=== PATIENT | female | born 1990 | race Caucasian/White ===

== ENCOUNTER 2021-09-14 15:58 | Outpatient (CLI) | payer BC, SELFPAY ==
--- NOTE | ~2021-09-14 | US_ITS ---
EXAMINATION: US OB follow up DATE: 09/14/2021 16:44 INDICATION: Abnormal glucose complicating during third trimester TECHNIQUE: Real-time ultrasound of the pelvis was performed. The interpreting radiologist was not pre sent for the study. COMPARISON: None. FINDINGS: There is a single living fetus in vertex presentation. The placenta is anterior. heart rate is 136 beats per minute (bpm). The amniotic fluid index is 13.0 cm, which is normal (5th%-95%: 8.8-23. 8 cm at 31 weeks estimated gestational age). The following biometric data were obtained: BPD: 8.8 cm -> 35 weeks 5 days Head circumference: 32.3 cm -> 36 weeks 4 days Abdominal circumference: 33.2 cm -> 37 weeks 1 days Femur length: 6.1 cm -> 31 weeks 5 days Femur length to biparietal diameter and abdominal circumference ratios are both greater than [address] deviations below the mean. Head circumference to abdominal circumference ratio: 0.97 (normal range 0.93-1.10). Estimated weight: 2711 g (+/-) 407 g or 6 lbs. 0 oz. (+/-) 14 oz. IMPRESSION: 1. Single living fetus in vertex presentation with heart rate of 136 bpm. 2. Gestational age by ultrasound of 35 weeks 2 day(s) +/- 2 week(s) 3 day(s) with ultrasound estimate d date of delivery (DEE) of 10/17/2021. Estimated weight is >97th percentile by Hadlock criteria when 11/11/2021 is used as the DEE. Please correlate with clinical information or earlier ultrasounds for most accurate DEE. 3. Discordant biometric data with femur length to both biparietal diameter ratio and femur length to abdominal circumference ratio both greater than 2 standard deviations below the mean suggesting rhizo saurav. Reviewed, dictated and finalized at location A. R READERS SUPERVISOR IMPRESSION: 1. Single living fetus in vertex presentation with heart rate of 136 bpm. 2. Gestational age by ultrasound of 35 weeks 2 day(s) +/- 2 week(s) 3 day(s) wi th ultrasound estimated date of delivery (DEE) of 10/17/2021. Estimated we ight is >97th percentile by Hadlock criteria when 11/11/2021 is used as the DEE. Please correlate with clinical information or earlier ultrasounds for most accu rate DEE. 3. Discordant biometric data with femur length to both biparietal diameter rati o and femur length to abdominal circumference ratio both greater than 2 standar d deviations below the mean suggesting rhizomelia.
== END 2021-09-14 15:59 | disposition home or self-care (01) ==
LOC: ANHIMG 16:04
PROVIDERS: Visit Provider Obstetrics & Gynecology
DX: O99.810 Abnormal glucose complicating pregnancy (principal); Z3A.35 35 weeks gestation of pregnancy
CPT/HCPCS: 76816

== ENCOUNTER 2021-09-29 10:49 | Observation (INO) | payer BC, SELFPAY ==
[2021-09-29 11:16] VITALS: BP 120/77; PULSE 103; TEMP 37.3
[2021-09-29 11:31] VITALS: BP 121/78; PULSE 87
[2021-09-29 11:40] VITALS: BMI 41.8
--- NOTE | 2021-09-29 11:41 | OBADM ---
This patient, Mary Macedo, admitted to the OB room OB Post 116 for observation. Patient/family oriented to hospital policies and general routines including ID bracelet, bed and alarms, visiting hours, pain management, procedures, bathroom and other care routines, personal items, smoking policy, room service/diet, and visiting hours. Patient/Family are encouraged to report perceived risks to care and to ask questions if they do not understand what they are told or what they should do.
[2021-09-29 11:46] VITALS: BP 119/79; PULSE 88
[2021-09-29 12:04] LABS: Glucose Point of Care 78 mg/dl (65-105)
[2021-09-29 12:55] LABS: Add Urine Microscopic? YES; Appearance Urine Cloudy (Clear); Bacteria Urine Trace /hpf; Bilirubin Urine Negative (Negative); Blood Urine Negative (Negative); Color Urine Yellow (Yellow); Glucose Urine UA Negative (Negative); Ketones Urine 1+ mg/dL (Negative); Leukocyte Esterase Ur 2+ LEU/UL (Negative); Mucus Urine Rare /lpf; Nitrate Urine Negative (Negative); Protein Urine Negative (Negative); RBC Urine 0-2 /hpf (0-2); Specific Grav Ur 1.012 (1.001-1.035); Squamous Epithelial Cell Urine Many /hpf (Few); Urobilinogen Urine Negative mg/dL (<2.0)
--- NOTE | 2021-10-04 12:28 | PM.OBTRLD ---
OB - Triage/Final Diagnosis Visit Information Comments/Additional reasons for admission: I have assessed the risk for this patient, Mary Macedo, and determined that she would benefit from observation care. Evaluation Laboratory results: Laboratory Tests 09/29/21 09/29/21 11:52 11:56 POC Capillary Glucose 78 Urine Color Yellow Urine Appearance Cloudy H Urine pH 6.0 Ur Specific Byron 1.012 Urine Protein Negative Urine Glucose (UA) Negative Urine Ketones 1+ H Ur Blood (Man) Negative Urine Nitrate Negative Urine Bilirubin Negative Urine Urobilinogen Negative Leukocyte Esterase Rfl 2+ H Urine RBC 0-2 Urine WBC 4-6 H Ur Squamous Epith Cells Many H Urine Bacteria Trace Urine Mucus Rare Final Diagnosis (1) uterine contractions: Code(s): O47.00 - False labor before 37 completed weeks of gestation, unspecified trimester Status: Acute
== END 2021-09-29 13:20 | disposition home or self-care (01) ==
PROVIDERS: Admitting Provider Obstetrics & Gynecology; Visit Provider Obstetrics & Gynecology
DX: O47.03 False labor before 37 completed weeks of gestation, third trimester (principal); Z3A.34 34 weeks gestation of pregnancy
CPT/HCPCS: 81001; 82948; G0378; G0379

== ENCOUNTER 2021-10-16 09:19 | Outpatient (RCR) | payer BC, SELFPAY ==
[2021-10-16 09:56] VITALS: BP 112/76; PULSE 74
== END 2021-11-15 08:19 | disposition home or self-care (01) ==
LOC: ANHOBOP 09:19
PROVIDERS: Visit Provider Obstetrics & Gynecology
DX: O24.419 Gestational diabetes mellitus in pregnancy, unspecified control (principal); Z3A.36 36 weeks gestation of pregnancy
CPT/HCPCS: 59025; J2274

== ENCOUNTER 2021-10-17 14:11 | Observation (INO) | payer BC, SELFPAY ==
[2021-10-17 14:33] VITALS: BP 127/75; PULSE 101
[2021-10-17 14:47] VITALS: TEMP 36.6
[2021-10-17 16:19] VITALS: BMI 42.2
--- NOTE | 2021-10-17 19:18 | PM.OBTRLD ---
OB - Triage/Final Diagnosis Visit Information Comments/Additional reasons for admission: I have assessed the risk for this patient, Mary Macedo, and determined that she would benefit from observation care. Final Diagnosis (1) uterine contractions: Code(s): O47.00 - False labor before 37 completed weeks of gestation, unspecified trimester Status: Acute
== END 2021-10-17 16:10 | disposition home or self-care (01) ==
PROVIDERS: Admitting Provider Obstetrics & Gynecology; Visit Provider Obstetrics & Gynecology
DX: O47.00 False labor before 37 completed weeks of gestation, unspecified trimester (principal); Z3A.36 36 weeks gestation of pregnancy
CPT/HCPCS: G0378; G0379

== ENCOUNTER 2021-10-18 17:43 | Inpatient (IN) | payer BC, SELFPAY ==
[2021-10-18] VITALS (37 sets, daily range): BP systolic 104–152; BP diastolic 56–120; PULSE 57–107; RESP 16–18; TEMP 36.2–36.6; O2SAT 97–100; BMI 42.1
--- NOTE | 2021-10-18 18:30 | LDADM ---
This patient, Mary Macedo, was admitted to Labor/Delivery/Recovery 120 on 10/18/21 at 17:43. Plans for labor, pain management and were discussed with patient. Patient/family oriented to hospital policies and general routines including ID bracelet, bed and alarms, visiting hours, pain management, procedures, bathroom and other care routines, personal items, smoking policy, room service/diet and guest tray routines, security routines, and visiting hours. Patient/Family are encouraged to report perceived risks to care and to ask questions if they do not understand what they are told or what they should do. See OBIX for further documentation.
[2021-10-18 18:33] LABS: Basophils Percent Auto 0.2 % (0.2-1.2); Eosinophils Absolute Auto 0.1 K/mm3 (0-0.3); Eosinophils Percent Auto 0.6 % (0-4.4); Hematocrit 36.8 % (37.0-47.0); Hemoglobin 11.8 g/dL (12.0-15.0); Immature Granulocyte Absolute 0.06 K/mm3 (0.00-0.031); Immature Granulocyte Percent A 0.5 % (0-0.5); Lymphocytes Absolute Auto 2.43 K/mm3 (0.9-3.2); Lymphocytes Percent Auto 18.9 % (18.3-44.2); Mean Corpuscular HGB Conc 32.1 g/dl (32-36); Mean Corpuscular Hemoglobin 28.9 pg (26-34); Mean Corpuscular Volume 90.2 fl (80-100); Mean Platelet Volume 10.9 fl (7.4-10.4); Monocytes Absolute Auto 0.9 K/mm3 (0.1-0.6); Monocytes Percent Auto 6.9 % (2.6-8.5); Neutrophils Absolute Auto 9.4 K/mm3 (1.3-6.7); Neutrophils Percent Auto 72.9 % (45.5-73.1); Platelet Count Result 273 k/mm3 (150-375); Red Blood Count 4.08 M/mm3 (4.2-5.4); Red Cell Distribution Width 13.1 % (11.5-14.5); White Blood Count 12.9 K/mm3 (4.5-10.0)
[2021-10-18] MEDS: LACTATED RINGERS 1,000 ML 125 ML IV CONT (18:35)
--- NOTE | 2021-10-18 18:41 | P.PNAN_ITS ---
Anes - Eval Pre Procedure Procedure: Operation Date: 10/18/21 19:00 Proposed Procedures p Section - Vikki Fuentes MD Date/Time: 10/18/21 18:41 Pre Op Diagnosis: Contractions Patient Data Age: 31 Gender: F Height: Weight: Last Vital Signs Pulse 107 H 10/18/21 18:31 BP 139/82 10/18/21 18:31 Allergies Allergy/AdvReac Type Severity Reaction Status Date / Time No Known Allergies Allergy Verified 09/22/21 11:16 Home Medications Medication Instructions Recorded Confirmed Type vitamins-iron fumarate 65 1 tablet PO DAILY 08/18/21 10/17/21 History mg iron-folic acid 1 mg tablet Laboratory Tests 10/18/21 10/18/21 10/18/21 18:22 18:22 18:25 WBC 12.9 K/mm3 H K/mm3 (4.5-10.0) RBC 4.08 M/mm3 L M/mm3 (4.2-5.4) Hgb 11.8 g/dL L g/dL (12.0-15.0) Hct 36.8 % L % (37.0-47.0) MCV 90.2 fl fl (80-100) MCH 28.9 pg pg (26-34) MCHC 32.1 g/dl g/dl (32-36) RDW 13.1 % % (11.5-14.5) Plt Count 273 k/mm3 k/mm3 (150-375) MPV 10.9 fl H fl (7.4-10.4) Immature Gran % (Auto) 0.5 % % (0-0.5) Neut % (Auto) 72.9 % % (45.5-73.1) Lymph % (Auto) 18.9 % % (18.3-44.2) [place] % (Auto) 6.9 % % (2.6-8.5) Eos % (Auto) 0.6 % % (0-4.4) Baso % (Auto) 0.2 % % (0.2-1.2) Lymph # (Auto) 2.43 K/mm3 K/mm3 (0.9-3.2) [place] # (Auto) 0.9 K/mm3 H K/mm3 (0.1-0.6) Eos # (Auto) 0.1 K/mm3 K/mm3 (0-0.3) Baso # (Auto) 0.0 K/mm3 K/mm3 (0.0-0.1) Abs Immat Gran (auto) 0.06 K/mm3 H K/mm3 (0.00-0.031) Absolute Neuts (auto) 9.4 K/mm3 H K/mm3 (1.3-6.7) Absolute Nucleated RBC 0.0 K/mm3 K/mm3 (0.0-0.012) Nucleated RBC % 0.0 % % (0.0-0.2) RPR Pending HIV 1&2 Ab/P24 Ag 4thGn Pending Patient hx anesthesia problems: none Family hx anesthesia problems: none Results Review: All pre-operative results and documents have been reviewed as part of the pre-operative evaluation. [facility] Past Medical History Medical History (Updated 10/18/21 @ 18:41 by Shira Greene CRNA) Anxiety Cholecystectomy planned Depression Gestational diabetes Obesity care Social History Social History (Updated 07/16/21 @ 15:25 by Beti Moody MA) Smoking status: Never smoker Second hand tobacco smoke exposure: No Alcohol intake: never Substance use: never Gender identity (if verbalized by the patient): Female Sexual Orientation (if Verbalized by the Patient): Straight or Heterosexual Spiritual care concerns: No Agree to blood products: No Exam Day of Procedure 10/18/21 18:41
--- NOTE | 2021-10-18 18:46 | PM.IMHP ---
H&P: HPI History of Present Illness Date/Time: 10/18/21 18:46 Mary is a 31yo @ 36.6wks (DEE: 11/09/21) who presented to L&D with painful contractions. She has been having contractions on and off for the last week; she had remained closed; now 3cm. She denies bleeding or leakage of fluid. Good movement. Her is complicated by: - A2GDM; on insulin 14u qAM and 16u qPM following w/ MFM and undergoing ANT - LGA fetus; EFW >97%ile - Polyhydramnios - Morbid obesity - Previous c/s x1 (for twins) - x1 ( labor) - H/o GDM in prior Chief Complaint: contractions Review of Systems Review of Systems: All systems reviewed & are unremarkable except as noted in HPI and below (HPI) [facility] Past Medical History Medical History (Updated 10/18/21 @ 18:55 by Vikki Fuentes MD) Anxiety Cholecystectomy planned Depression Gestational diabetes Obesity care Social History Social History (Updated 07/16/21 @ 15:25 by Beti Moody MA) Smoking status: Never smoker Second hand tobacco smoke exposure: No Alcohol intake: never Substance use: never Gender identity (if verbalized by the patient): Female Sexual Orientation (if Verbalized by the Patient): Straight or Heterosexual Spiritual care concerns: No Agree to blood products: No Meds Home Medications and Allergies Home Medications Medication Instructions Recorded Confirmed Type vitamins-iron fumarate 65 1 tablet PO DAILY 08/18/21 10/17/21 History mg iron-folic acid 1 mg tablet Allergies Allergy/AdvReac Type Severity Reaction Status Date / Time No Known Allergies Allergy Verified 09/22/21 11:16 Vital Signs Vital Signs - 24 hr 10/18/21 18:31 10/18/21 18:45 Pulse Rate 107 H 99 Blood Pressure 139/82 142/95 H Exam Const: General: cooperative, comfortable and in distress (with contractions) Nutritional Appearance: obese morbidly obese Resp: Effort & Inspection: normal respiratory effort Cardio: Rate: regular rate GI: GI Palp: No abdominal tenderness and Yes Soft to palpation : Other: FHT's: 140's/mod michael/ + accels/ no decels TOCO: ctx's q 3min Membranes: intact Cervix: 3/70/-3, bulging bag presentation; cephalic Skin: General skin exam: normal color Neuro: General: patient oriented x3 H&P: Results Labs Labs: Short CBC 10/18/21 Range/Units 18:22 WBC 12.9 H (4.5-10.0) K/mm3 Hgb 11.8 L (12.0-15.0) g/dL Hct 36.8 L (37.0-47.0) % Plt Count 273 (150-375) k/mm3 Assessment and Plan Assessment and plan (1) Gestational diabetes: Qualifiers: Gestational diabetes mellitus control: insulin-controlled Trimester: third trimester Qualified Code(s): O24.414 - Gestational diabetes mellitus in , insulin controlled Code(s): O24.419 - Gestational diabetes mellitus in , unspecified control Status: Acute (2) Large for gestational age fetus: Status: Acute (3) Previous section: Code(s): Z98.891 - History of uterine scar from previous surgery Status: Acute Additional Plan - Proceed with repeat section - Risks and benefits explained in detail - GBS negative
--- NOTE | 2021-10-18 18:56 | WPDHPUPDATE1 ---
History and Physical Update Update Date/Time: 10/18/21 18:56 History and Physical has been reviewed, including an updated exam of the patient. There are NO changes in the patient's condition. Risks, benefits, and alternatives have been discussed and questions answered. Patient agrees to proceed with procedure.
[2021-10-18 19:25] LABS: HIV 1/2 Ab P24 Ag Result Negative (Negative)
[2021-10-18] MEDS: ceFAZolin 2 GM/D5W 50 ML 2 GM/50 ML BAG IVPB (19:33)
--- NOTE | 2021-10-18 20:25 | PM.OBPRVD ---
OB - Delivery Note Procedure Delivery date: 10/18/21 Procedure: Procedures Operation Date: 10/18/21 19:00 Actual Procedure Side Surgeon p Section Not Applicable Vikki Fuentes MD Events: Gestational Diabetes, Polyhydramnios and Previous Delivery Route of delivery: Specimen: Yes (placenta) Quantitative Blood Loss (ml): 635 Anesthesia type: Spinal Disposition: Floor Baby Date of : 10/18/21 Time of : 19:32 Weeks of gestation at delivery: 36 (.6) gender: Female Weight (pounds): 9 Weight (ounces): 5 presentation: vertex position: Left Occiput Transverse Placenta delivery description: Expressed Cord Vessel Description: 3 Vessels score one minute: 9 score five minutes: 9 Narrative: She was counseled on all risks and benefits in detail. She was taken to the operating room where spinal was placed. She was then prepped and draped in the normal sterile fashion. She received 2g Ancef and a time out was performed. A Pfannenstiel incision was made in the skin and carried down to the underlying fascia. The fascia was nicked on either side of the midline and the fascial incision was extended laterally and superiorly. The fascia was then elevated and the underlying rectus muscles were dissected off the fascia, superiorly and inferiorly. The rectus muscles were then in the midline and the peritoneum was entered bluntly. Filmy adhesions were noted to the anterior uterus, which were carefully taken down without issue. Once adequate exposure was obtained, a Mobius self retractor was placed within the abdomen. A bladder flap was created. A low transverse incision was made on the lower uterine segment and copious amounts of clear fluid was noted. The occiput was brought to the hysterotomy and the head was easily delivered. The shoulder and body then followed. The infant had spontaneous cry and the mouth and nose were bulb suctioned. The cord was clamped and cut and the infant was handed off to the awaiting pediatric nurse. A segment of the cord was collected for cord gases. The remaining cord blood was collected for typing. With pitocin infusing, the placenta delivered with gentle traction on the cord without complications. The uterus was then cleared out of all clots and debris using a clean, moist lap. The hysterotomy was then repaired in a running, interlocking fashion using 0 Vicryl. A second layer imbricating suture was then made using 0 Vicryl. A small bleeder was noted mid/lower hysterotomy and a 2-0 Vicryl figure of eight stitch was placed. The hysterotomy was found to be hemostatic and good uterine tone was noted. The bilateral adnexa were examined and found to be normal. The pelvis was cleared of all clots and fluid. The Mobius retractor was removed from the abdomen. The peritoneum, muscle, and fascia were examined and made hemostatic with bovie cautery. The fascia was then repaired using two separate 0 Vicryl sutures in a running fashion. The subcutaneous tissue was then irrigated and made hemostatic with bovie cautery. The subcutaneous tissue was then reapproximated using 2-0 Vicryl. The skin was then closed using 4-0 Monocryl in a running subcuticular fashion. Sponge, lap, needle and instrument counts were correct at the end of the procedure x2. The patient tolerated the procedure well and was taken to recovery in a stable condition. [facility] Delivery Billing Delivery Delivery: Delivery Charge
[2021-10-18] MEDS: ONDANSETRON INJ 4 MG/2 ML VIAL IV PUSH (21:50)
[2021-10-18] MEDS: diphenhydrAMINE HCl INJ 50 MG/ML VIAL 25 MG IV PUSH (21:52)
[2021-10-18] MEDS: OXYTOCIN 30 UNITS/NS 500 ML 30 UNITS/500 ML BAG 125 UNITS IV CONT (23:04)
[2021-10-19] VITALS: BP 115/67; PULSE 68; RESP 18; TEMP 36.8; O2SAT 97
[2021-10-19 03:45] VITALS: BP 122/79; PULSE 87; RESP 18; TEMP 37.1; O2SAT 98
[2021-10-19] MEDS: diphenhydrAMINE HCl CAP 25 MG CAPSULE PO (03:58)
[2021-10-19 06:02] LABS: Basophils Percent Auto 0.1 % (0.2-1.2); Eosinophils Percent Auto 0.2 % (0-4.4); Hematocrit 31.5 % (37.0-47.0); Immature Granulocyte Absolute 0.06 K/mm3 (0.00-0.031); Immature Granulocyte Percent A 0.4 % (0-0.5); Lymphocytes Absolute Auto 2.05 K/mm3 (0.9-3.2); Lymphocytes Percent Auto 14.4 % (18.3-44.2); Mean Corpuscular HGB Conc 31.7 g/dl (32-36); Mean Corpuscular Hemoglobin 28.5 pg (26-34); Mean Corpuscular Volume 89.7 fl (80-100); Mean Platelet Volume 11.4 fl (7.4-10.4); Monocytes Percent Auto 6.9 % (2.6-8.5); Neutrophils Absolute Auto 11.1 K/mm3 (1.3-6.7); Platelet Count Result 223 k/mm3 (150-375); Red Blood Count 3.51 M/mm3 (4.2-5.4); Red Cell Distribution Width 13.2 % (11.5-14.5); White Blood Count 14.3 K/mm3 (4.5-10.0)
[2021-10-19] MEDS: KETOROLAC 30 MG/ML VIAL (*BKC) IV PUSH ×2 (06:29→12:03)
[2021-10-19 06:54] LABS: Rapid Plasma Reagin Non-Reactive (NonReactive)
[2021-10-19 08:00] VITALS: BP 98/51; PULSE 83; RESP 18; TEMP 37.6; O2SAT 97
--- NOTE | 2021-10-19 10:16 | WPDANLDPN2 ---
Anes-Prog Note L&D Date/Time: 10/19/21 10:16 Comfortable throughout: labor and delivery Neuraxial method: epidural Epidural/Spinal procedure site: clean & non-tender Neuro status: Neuro function grossly intact. Cardiovascular status: normal Respiratory status: normal Airway patency: baseline Mental status: baseline Post-Op hydration status: normal Vital Signs: Last Vital Signs Temp 37.6 C H 10/19/21 08:00 Pulse 83 10/19/21 08:00 Resp 18 10/19/21 08:00 BP 98/51 L 10/19/21 08:00 Pulse Ox 97 10/19/21 08:00 Pain score (VAS): 2 I/O: Intake & Output 10/18/21 10/19/21 10/19/21 23:59 07:59 15:59 Intake Total 1000 200 Output Total 400 220 300 Balance 600 -20 -300 Post-procedural complaints: none Patient feedback: Patient satisfied with anesthetic care.
[2021-10-19] MEDS: HYDROcodone/acetaminophen (*CRX) 5-325 MG TABLET 1 TAB PO ×4 (12:02→23:49)
[2021-10-19] MEDS: DOCUSATE SODIUM 100 MG CAPSULE PO ×2 (12:02→16:05)
[2021-10-19] MEDS: MULTIVIT/MIN/PREN/FOL AC/IRON TABLET 1 TAB PO (12:03)
[2021-10-19] MEDS: TETANUS,DIPHTHERIA,AC PERTUSSIS ADULT (0.5 ML) BOOSTRIX IM (12:04)
--- NOTE | 2021-10-19 12:09 | PM.OBPNVD ---
OB - PN: Subj Subjective Date/time seen: 10/19/21 12:09 Narrative: POD#1 Mary reports doing well today. 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 Her pain is controlled with meds. She is tolerating regular diet, voiding, passed gas (x1), and ambulating without issues. She denies any issues with her incision. She is bottle feeding. OB - PN: Obj Data Labs CBC & Chem 7: 10/19/21 03:31 Labs: Laboratory Results - last 24 hr 10/18/21 10/18/21 10/18/21 18:22 18:22 18:22 WBC 12.9 H RBC 4.08 L Hgb 11.8 L Hct 36.8 L MCV 90.2 MCH 28.9 MCHC 32.1 RDW 13.1 Plt Count 273 MPV 10.9 H Immature Gran % (Auto) 0.5 Neut % (Auto) 72.9 Lymph % (Auto) 18.9 [place] % (Auto) 6.9 Eos % (Auto) 0.6 Baso % (Auto) 0.2 Lymph # (Auto) 2.43 [place] # (Auto) 0.9 H Eos # (Auto) 0.1 Baso # (Auto) 0.0 Abs Immat Gran (auto) 0.06 H Absolute Neuts (auto) 9.4 H Absolute Nucleated RBC 0.0 Nucleated RBC % 0.0 RPR Non-reactive HIV 1&2 Ab/P24 Ag 4thGn Blood Type A Positive Antibody Screen Negative 10/18/21 10/19/21 18:25 03:31 WBC 14.3 H RBC 3.51 L Hgb 10.0 L Hct 31.5 L MCV 89.7 MCH 28.5 MCHC 31.7 L RDW 13.2 Plt Count 223 MPV 11.4 H Immature Gran % (Auto) 0.4 Neut % (Auto) 78.0 H Lymph % (Auto) 14.4 L [place] % (Auto) 6.9 Eos % (Auto) 0.2 Baso % (Auto) 0.1 L Lymph # (Auto) 2.05 [place] # (Auto) 1.0 H Eos # (Auto) 0.0 Baso # (Auto) 0.0 Abs Immat Gran (auto) 0.06 H Absolute Neuts (auto) 11.1 H Absolute Nucleated RBC 0.0 Nucleated RBC % 0.0 RPR HIV 1&2 Ab/P24 Ag 4thGn Negative Blood Type Antibody Screen OB - PN A/P Assessment and Plan (1) labor: Qualifiers: Fetus number: single or unspecified fetus labor delivery status: with delivery in third trimester labor trimester: third trimester Qualified Code(s): O60.14X0 - labor third trimester with delivery third trimester, not applicable or unspecified Code(s): O60.00 - labor without delivery, unspecified trimester Status: Acute (2) S/P repeat low transverse : Code(s): Z98.891 - History of uterine scar from previous surgery Status: Acute (3) Gestational diabetes: Qualifiers: Gestational diabetes mellitus control: insulin-controlled Trimester: third trimester Qualified Code(s): O24.414 - Gestational diabetes mellitus in , insulin controlled Code(s): O24.419 - Gestational diabetes mellitus in , unspecified control Status: Acute Plan day: 1 Plan: routine care Time Spent With Patient Time: Total time spent is greater than 50% in coordination of care (as documented) at patient's floor/unit and/or counseling patient: Review of Systems Constitutional: Constitutional: Denies chills, Denies fever(s) and Denies headache(s) Eyes: Eyes: Denies change in vision ENT: Denies dizziness and Denies headache(s) Cardiovascular: Cardiovascular: Denies chest pain, Denies palpitations and Denies dyspnea Respiratory: Respiratory: Denies cough and Denies dyspnea Gastrointestinal: Gastrointestinal: Denies nausea and Denies vomiting Genitourinary: Comments: normal bleeding Neurologic: Denies dizziness and Denies headache(s) Endocrine: Endocrine: Denies palpitations Exam Const: General: cooperative, comfortable and no acute distress Nutritional Appearance: obese morbidly obese Orientation/consciousness: patient oriented x3 Resp: Effort & Inspection: normal respiratory effort Auscultation: clear to auscultation bilaterally Cardio: Rate: regular rate GI: Inspection: non-distended and incision (covered with clean dressing) GI Palp: Yes abdominal tenderness (appropriate) and Yes Soft to palpation Auscultation: normal bowel sounds : Other: fundus firm Skin: Ge
[2021-10-19 12:11] VITALS: BP 112/54; PULSE 82; RESP 18; TEMP 37.1; O2SAT 98
[2021-10-19 16:10] VITALS: BP 115/62; PULSE 94; RESP 18; TEMP 36.8
[2021-10-19 18:45] VITALS: BP 115/70; PULSE 82; RESP 16; TEMP 36.4; O2SAT 99
[2021-10-19] MEDS: IBUPROFEN 600 MG TABLET PO (18:56)
[2021-10-20] MEDS: IBUPROFEN 600 MG TABLET PO ×3 (01:41→12:58)
[2021-10-20] MEDS: HYDROcodone/acetaminophen (*CRX) 10-325 MG TABLET 1 TAB PO (03:09)
[2021-10-20] MEDS: SIMETHICONE 80 MG TAB.CHEW PO (03:11)
--- NOTE | 2021-10-20 05:40 | PC.NURSE ---
Patient viewed the discharge video Mother & Baby Care, The First Two Weeks . Patient was given the opportunity and encouraged to ask questions. Patient verbalized understanding of information shared and has been given the mother/baby guide for home reference.
[2021-10-20 08:20] VITALS: BP 114/62; PULSE 81; RESP 18; TEMP 36.4; O2SAT 97
[2021-10-20] MEDS: MULTIVIT/MIN/PREN/FOL AC/IRON TABLET 1 TAB PO (08:38)
[2021-10-20] MEDS: DOCUSATE SODIUM 100 MG CAPSULE PO (08:39)
[2021-10-20] MEDS: HYDROcodone/acetaminophen (*CRX) 5-325 MG TABLET 1 TAB PO (08:39)
--- NOTE | 2021-10-20 12:17 | PM.OBPNVD ---
OB - PN: Subj Subjective Date/time seen: 10/20/21 12:10 Narrative: POD#2 Mary reports doing well today. Her bleeding is light. Her pain is controlled. She is tolerating regular diet, voiding, passing gas, and ambulating without issues. She denies any issues with her incision. She is bottle feeding. She would like to go home today. OB - PN: Obj Data Labs CBC & Chem 7: 10/19/21 03:31 OB - PN A/P Assessment and Plan (1) S/P repeat low transverse : Code(s): Z98.891 - History of uterine scar from previous surgery Status: Acute (2) labor: Qualifiers: Fetus number: single or unspecified fetus labor delivery status: with delivery in third trimester labor trimester: third trimester Qualified Code(s): O60.14X0 - labor third trimester with delivery third trimester, not applicable or unspecified Code(s): O60.00 - labor without delivery, unspecified trimester Status: Acute (3) Gestational diabetes: Qualifiers: Gestational diabetes mellitus control: insulin-controlled Trimester: third trimester Qualified Code(s): O24.414 - Gestational diabetes mellitus in , insulin controlled Code(s): O24.419 - Gestational diabetes mellitus in , unspecified control Status: Acute Plan Plan: routine care Comments: - Pelvic rest; take meds as prescribed - Incision care/no heavy lifting - ER return precautions: fever, n/v/abd pain, bleeding, HTN Time Spent With Patient Time: Total time spent is greater than 50% in coordination of care (as documented) at patient's floor/unit and/or counseling patient: Review of Systems Constitutional: Constitutional: Denies chills, Denies fever(s) and Denies headache(s) Eyes: Eyes: Denies change in vision ENT: Denies dizziness and Denies headache(s) Cardiovascular: Cardiovascular: Denies chest pain, Denies palpitations and Denies dyspnea Respiratory: Respiratory: Denies cough and Denies dyspnea Gastrointestinal: Gastrointestinal: Denies nausea and Denies vomiting Genitourinary: Comments: normal bleeding Neurologic: Denies dizziness and Denies headache(s) Endocrine: Endocrine: Denies palpitations Exam Const: General: cooperative, comfortable and no acute distress Nutritional Appearance: obese morbidly obese Orientation/consciousness: patient oriented x3 Resp: Effort & Inspection: normal respiratory effort Auscultation: clear to auscultation bilaterally Cardio: Rate: regular rate GI: Inspection: non-distended and incision (covered with clean dressing) GI Palp: Yes abdominal tenderness (appropriate) and Yes Soft to palpation Auscultation: normal bowel sounds : Other: fundus firm Skin: General skin exam: normal color Neuro: General: patient oriented x3 Extrem: General: normal to inspection Psych: Appearance: grossly normal Affect: normal affect Attitude: cooperative
--- NOTE | 2021-10-21 09:08 | PM.OBDSVD ---
DS: Admitting Diagnosis Discharge Date 10/20/21 Admitting Diagnosis labor DS: Discharge Diagnosis Discharge Diagnosis (1) S/P repeat low transverse : Code(s): Z98.891 - History of uterine scar from previous surgery Status: Acute (2) labor: Qualifiers: labor trimester: third trimester labor delivery status: with delivery in third trimester Fetus number: single or unspecified fetus Qualified Code(s): O60.14X0 - labor third trimester with delivery third trimester, not applicable or unspecified Code(s): O60.00 - labor without delivery, unspecified trimester Status: Acute (3) Previous section: Code(s): Z98.891 - History of uterine scar from previous surgery Status: Acute (4) Obesity: Qualifiers: Obesity type: unspecified obesity type Obesity classification: adult class 3 (BMI >= 40) Serious obesity comorbidity presence: unspecified whether serious comorbidity present Body mass index: BMI 40.0-44.9 Qualified Code(s): E66.01 - Morbid (severe) obesity due to excess calories; Z68.41 - Body mass index [BMI] 40.0-44.9, adult Code(s): E66.9 - Obesity, unspecified Status: Acute (5) Gestational diabetes: Qualifiers: Gestational diabetes mellitus control: insulin-controlled Trimester: third trimester Qualified Code(s): O24.414 - Gestational diabetes mellitus in , insulin controlled Code(s): O24.419 - Gestational diabetes mellitus in , unspecified control Status: Acute (6) Large for gestational age fetus: Status: Acute OB - DS: Summary OB Procedures : NST and Ultrasound OB Procedures Intrapartum: low cervical, transverse OB Procedures: : None Peripartum Data Infant Delivery Method: Section Procedures: Procedures Operation Date: 10/18/21 19:00 Actual Procedure Side Surgeon p Section Not Applicable Vikki Fuentes MD complications: none [place] 1: Gender: Female Disposition of : home Status at Discharge Functional status at discharge: independent ambulation Overall status at discharge: patient is back to baseline Time Spent with Patient Time attestation: Total time spent providing and/or coordinating discharge services: Time spent: Less than 30 minutes Exam Const: General: cooperative, comfortable and no acute distress Nutritional Appearance: obese morbidly obese Orientation/consciousness: patient oriented x3 Resp: Effort & Inspection: normal respiratory effort Auscultation: clear to auscultation bilaterally Cardio: Rate: regular rate GI: Inspection: non-distended and incision (covered w/ clean dressing) GI Palp: No abdominal tenderness and Yes Soft to palpation Auscultation: normal bowel sounds : Other: fundus firm Skin: General skin exam: normal color Neuro: General: patient oriented x3 Extrem: General: normal to inspection Psych: Appearance: grossly normal Affect: normal affect Attitude: cooperative DS: Data Data Completed and Pending Pending studies at discharge: Pending at discharge 10/18/21 19:33 Surgical [PTH] Routine Discharge Plan Discharge Attending physician on discharge: Vikki Fuentes Discharging Clinician: Vikki Fuentes Anticipated Discharge Date/Time: 10/20/21 14:00 Patient Disposition: Home, Self-Care Activity: may shower, no straining, may drive after 2 weeks and pelvic rest Diet: as tolerated and regular Discharge Instructions: no heavy lifting > 10lbs for 6 weeks remove dressing from incision by 10/24/21 Education: Mom and Baby Guide Given to: Mother Follow-Up: Call your delivering provider's office for an appointment to be seen in: 2 Weeks Mom and baby should come to the [facility] for the follow-up appointment. Appointment Da
== END 2021-10-20 14:12 | disposition home or self-care (01) | DRG 540 ==
LOC: ANHLDR 18:12 → ANHOB2 23:06
PROVIDERS: Admitting Provider Obstetrics & Gynecology; Visit Provider Obstetrics & Gynecology
PROC: 10D00Z1 Extraction of Products of Conception, Low, Open Approach (ICD-10-PCS; CPT 59514; principal; 2021-10-18 19:00)
DX: O60.14X0 Preterm labor third trimester with preterm delivery third trimester, not applicable or unspecified (principal); Z37.0 Single live birth; Z3A.36 36 weeks gestation of pregnancy; O34.211 Maternal care for low transverse scar from previous cesarean delivery; O24.424 Gestational diabetes mellitus in childbirth, insulin controlled; O36.63X0 Maternal care for excessive fetal growth, third trimester, not applicable or unspecified; O99.214 Obesity complicating childbirth; E66.01 Morbid (severe) obesity due to excess calories; O40.3XX0 Polyhydramnios, third trimester, not applicable or unspecified
CPT/HCPCS: 36415; 85025; 86592; 86703; 86850; 86900; 86901; 88307; 90715; A9270; G0432; J0131; J0690; J1200; J1885; J2274; J2405; J2590; J7120

== ENCOUNTER 2022-06-23 21:56 | Emergency (ER) | payer BC, SELFPAY ==
[2022-06-23 22:00] VITALS: BP 136/84; PULSE 110; RESP 18; TEMP 37.3; O2SAT 98
--- NOTE | 2022-06-23 22:45 | ED.URI ---
HPI - URI/Sore Throat General Chief Complaint: Upper Respiratory Infection Stated Complaint: sore throat, cough Time Seen by Provider: 06/23/22 22:13 Source: patient and family Mode of arrival: ambulatory Limitations: no limitations History of Present Illness HPI Narrative: this is a 32-year-old female with a 2 week history of cough congestion with no shortness of breath no nausea vomiting no chest pain no abdominal pain no diarrhea constipation. MD elicited complaint: fever and cough Onset (ago): week(s) Related Data Allergies Allergy/AdvReac Type Severity Reaction Status Date / Time No Known Allergies Allergy Verified 06/23/22 22:14 Review of Systems Review of Systems: All systems reviewed & are unremarkable except as noted in HPI and below PMFSH Past Medical History Medical History Anxiety Cholecystectomy planned Depression Gestational diabetes Obesity care Surgical History Surgical History Delivery by section (10/18/21) rpt c/ s Delivery by section (05/06/12) primary c/ s Social History Social History Smoking status: Never smoker Second hand tobacco smoke exposure: No Alcohol intake: never Substance use: never Gender identity (if verbalized by the patient): Female Sexual Orientation (if Verbalized by the Patient): Straight or Heterosexual Spiritual care concerns: No Agree to blood products: No Exam Const: General: healthy appearing Nutritional Appearance: well nourished Orientation/consciousness: patient oriented x3 Limitations: no limitations HENMT: Head: normal to inspection Ears: external ears normal Face/Nose/Sinus: Normal external nose present Face and sinus: normal facial exam Mouth: Yes Normal oral and palatal mucosa present Eyes: Conjunctivae: conjunctivae normal Pupils: Equal, round and reactive pupils present EOM: EOMs intact bilaterally Direct Ophthalmoscopy: no photophobia Neck: Neck: normal visual inspection Chest: Chest palpation & inspection: normal inspection of the chest Resp: Effort & Inspection: normal respiratory effort Cardio: Rate: regular rate Rhythm: regular rhythm GI: GI Palp: Yes Soft to palpation Auscultation: normal bowel sounds : General: Yes bladder normal to palpation Back/Spine/Pelvis: Back: no CVA tenderness Skin: General skin exam: normal color Rashes: no rashes Neuro: General: patient oriented x3 Cranial nerves: Yes Nystagmus not present Extrem: General: normal to inspection Psych: Mental Status: mental status grossly normal Affect: normal affect Course Course Emergency Course: COVID influenza and RSV evaluated and reviewed with patient and family. Vital Signs Vital signs: Vital Signs Temperature 37.3 C 06/23/22 22:00 Pulse Rate 110 H 06/23/22 22:00 Respiratory Rate 18 06/23/22 22:00 Blood Pressure 136/84 06/23/22 22:00 Pulse Oximetry 98 06/23/22 22:00 Oxygen Delivery Room Air 06/23/22 22:00 Temperature 37.3 C 06/23/22 22:00 Pulse Rate 110 H 06/23/22 22:00 Respiratory Rate 18 06/23/22 22:00 Blood Pressure 136/84 06/23/22 22:00 Pulse Oximetry 98 06/23/22 22:00 Oxygen Delivery Room Air 06/23/22 22:00 MDM - URI/Sore Throat Lab Data Labs: Lab Results 06/23/22 Range/Units 22:13 Influenza A (RT-PCR) Pending Influenza B (RT-PCR) Pending RSV (RT-PCR) Pending SARS-CoV-2 RNA (RT-PCR) Pending Critical Care Time Critical Care Time Critical Care Time: No Discharge Plan Discharge Clinical Impression: Viral infection Patient Disposition: Home, Self-Care Condition: Stable Instructions: Antibiotic Form, Viral Syndrome (ED) Additional Instructions: Can take Tylenol or Motrin drink plenty of fluids and follow with primary care physic
[2022-06-23 23:16] LABS: Influenza A QL RT-PCR Negative (Negative); Influenza B QL RT-PCR Negative (Negative); SARS-CoV-2 RNA PCR Negative (Negative)
--- NOTE | 2022-06-23 23:22 | PC.NURSE ---
PT IS SITTING IN EXAM ROOM WITH FAMILY AT THIS TIME. NAD NOTED. PT IS AWAITING RESULTS. WILL CONTINUE TO MONITOR.
[2022-06-23 23:25] LABS: RSV RNA, RT-PCR Negative (Negative)
[2022-06-23 23:37] VITALS: BP 115/62; PULSE 100; RESP 16; TEMP 37.3; O2SAT 98
== END 2022-06-24 00:10 | disposition home or self-care (01) ==
PROVIDERS: Emergency Provider Emergency Medicine; PCP Physician Assistant
DX: B34.9 Viral infection, unspecified (principal); Z20.822 Contact with and (suspected) exposure to COVID-19
CPT/HCPCS: 87637; 99283

== ENCOUNTER 2022-09-05 19:11 | Emergency (ER) | payer BC, SELFPAY ==
[2022-09-05 19:20] VITALS: BP 128/73; PULSE 83; RESP 18; TEMP 36.2; O2SAT 97
--- NOTE | 2022-09-05 19:33 | ED.GENADULT ---
HPI - General Adult General Chief complaint: Abdominal Pain Stated complaint: abdominal pain & low back pain Time Seen by Provider: 09/05/22 19:28 History of Present Illness HPI narrative: The patient is a 32-year-old woman with history of obesity, frequent UTIs, on the Depo-Provera shot, last menstrual period July 2022. She has had 2 prior sections and a cholecystectomy. No other abdominal operations. The patient presents with a 3 day history of epigastric and periumbilical abdominal discomfort, radiating to the lower back, associated with nausea but no vomiting or diarrhea. She does have pressure with urination but no true dysuria. Does have urinary frequency and urgency. Decreased oral intake. No hematuria. No hematochezia or melena. No fevers or chills diaphoresis or cough rhinorrhea or nasal congestion or sore throat or dyspnea. Related Data Allergies Allergy/AdvReac Type Severity Reaction Status Date / Time No Known Allergies Allergy Verified 06/23/22 22:14 Review of Systems Review of Systems: All systems reviewed & are unremarkable except as noted in HPI and below Constitutional: Constitutional: Reports as per HPI, Reports no additional constitutional complaints, Denies chills, Denies excessive sweating, Denies fatigue, Denies fever(s), Denies headache(s) and Denies weakness Eyes: Eyes: Reports as per HPI, Reports no additional eye complaints, Denies change in vision and Denies photophobia ENT: Reports system reviewed and no additional complaints, except as documented, Reports as per HPI, Denies dysphagia, Denies vertigo, Denies dizziness, Denies headache(s), Denies lip swelling, Denies nasal congestion, Denies sore throat, Denies throat swelling and Denies tongue swelling Cardiovascular: Cardiovascular: Reports as per HPI, Reports no additional cardiovascular complaints, Denies chest pain, Denies syncope, Denies rapid heart rate and Denies dyspnea Respiratory: Respiratory: Reports as per HPI, Reports no additional respiratory complaints, Denies chest congestion, Denies cough, Denies dyspnea and Denies wheezing Gastrointestinal: Gastrointestinal: Reports as per HPI, Reports no additional gastrointestinal complaints, Reports abdominal pain, Denies constipation, Denies dysphagia, Denies diarrhea, Reports nausea and Denies vomiting Genitourinary: Genitourinary: Reports as per HPI, Denies hematuria, Denies urinary frequency, Reports nocturia, Denies dysuria, Denies urinary incontinence and Reports urinary urgency Musculoskeletal: Musculoskeletal: Reports no additional musculoskeletal complaints, Reports back pain, Denies myalgias, Denies arthralgias, Denies joint swelling and Denies numbness Integumentary/Breasts: Skin/Breast: Reports system reviewed and no additional complaints, except as docu, Denies pruritus, Denies erythema, Denies rash and Denies skin ulcer Neurologic: Reports system reviewed and no additional complaints, except as documented, Reports as per HPI, Denies confusion, Denies vertigo, Denies dizziness, Denies syncope, Denies headache(s), Denies focal weakness, Denies numbness and Denies weakness Psychiatric: Psychiatric: Reports as per HPI, Denies anxiety, Denies confusion, Denies depression, Denies homicidal ideation and Denies suicidal ideation Endocrine: Endocrine: Reports no additional endocrine complaints, Denies excessive sweating, Denies fatigue, Denies polydipsia and Denies polyuria Hematologic/Lymphatic: Hematologic/Lymphatic: Reports no additional hematologic/lymphatic complaints, Denies easy bleeding and Denies easy bruising Allergic/Immunologic: Allergic/Immunologic: Reports no additional allergic/immunologic complaints, Denies lip swelling, Denies throat swelling, Denies tongue swelling and Denies wheezing PMFSH Past Medical History Medical History Anxiety Cholecystectomy planned Depression Gestational diabetes Obesity ca
[2022-09-05] MEDS: ACETAMINOPHEN 500 MG TABLET 1000 MG PO (19:38)
[2022-09-05] MEDS: ONDANSETRON HCL ODT 4 MG TABLET 8 MG PO (19:39)
[2022-09-05 19:55] LABS: Basophils Absolute Auto 0.02 K/mm3 (0.00-0.10); Basophils Percent Auto 0.3 % (0.0-1.0); Eosinophils Absolute Auto 0.23 K/mm3 (0.02-0.50); Eosinophils Percent Auto 3.7 % (1.0-6.0); Hematocrit 38.2 % (35.0-49.0); Hemoglobin 12.6 g/dL (12.0-15.0); Immature Granulocyte Absolute 0.02 K/mm3 (0.00-0.00); Immature Granulocyte Percent A 0.3 % (0.0-0.0); Lymphocytes Absolute Auto 2.36 K/mm3 (1.10-4.50); Lymphocytes Percent Auto 37.8 % (18.0-42.0); Mean Corpuscular Hemoglobin 29.1 pg (27.0-31.0); Mean Corpuscular Volume 88.2 fL (78.0-102.0); Mean Platelet Volume 10.2 fl (9.2-11.8); Monocytes Absolute Auto 0.78 K/mm3 (0.10-0.90); Monocytes Percent Auto 12.5 % (2.0-11.0); Neutrophils Absolute Auto 2.8 K/mm3 (1.7-7.2); Neutrophils Percent Auto 45.4 % (50.0-70.0); Platelet Count Result 254 K/mm3 (150-420); Red Blood Count 4.33 M/mm3 (4.20-5.40); Red Cell Distribution Width 12.4 % (11.6-14.4); White Blood Count 6.3 K/mm3 (4.8-10.8)
[2022-09-05 19:58] LABS: Appearance Urine Clear (Clear); Bilirubin Urine Negative (Negative); Blood Urine Negative (Negative); Color Urine Yellow (Yellow); Glucose Urine UA Negative (Negative); Ketones Urine Negative (Negative); Leukocyte Esterase Ur Negative LEU/UL (Negative); Nitrate Urine Negative (Negative); Protein Urine Trace (Negative); Specific Grav Ur >= 1.030 (1.010-1.020)
[2022-09-05 20:01] LABS: Pregnancy On Board Control Positive; Urine Pregnancy Test Negative
[2022-09-05 20:06] LABS: Add Urine Microscopic? YES; RBC Urine 0-2 /hpf (0-2); Squamous Epithelial Cell Urine Many /hpf (Few); WBC Urine 0-3 /hpf (0-3)
[2022-09-05 20:07] LABS: Bacteria Urine 2+ /hpf
[2022-09-05 20:10] LABS: Alanine Aminotransferase 19 U/L (14-59); Alkaline Phosphatase 58 U/L (46-116); Amylase 35 U/L (25-115); Anion Gap 9 mmol/L (8-16); Aspartate Amino Transferase 16 U/L (15-37); Bilirubin,Total 0.1 mg/dL (0.00-1.00); Blood Urea Nitrogen 8 mg/dL (7-18); Calcium 8.2 mg/dL (8.5-10.1); Carbon Dioxide 27 mmol/L (21-32); Chloride 107 mmol/L (98-108); Estimated CRCL calculation 118 ml/min; Estimated Glomerular Filt Rate > 60; Glucose 86 mg/dL (70-99); Lipase 21 U/L (16-77); Magnesium 1.6 mg/dL (1.8-2.4); Osmolality Calculated 293 mOsm/kg (285-295); Potassium 3.4 mmol/L (3.5-5.1); Sodium 143 mmol/L (136-145); Total Protein 6.7 g/dL (6.4-8.2)
[2022-09-05] MEDS: MAGNESIUM OXIDE 400 MG TABLET 800 MG PO (20:41)
[2022-09-05] MEDS: POTASSIUM BICARBONATE 25 MEQ TABEF 50 MEQ PO (20:41)
[2022-09-05] MEDS: CEPHALEXIN 500 MG CAPSULE PO (20:41)
[2022-09-05 20:48] VITALS: BP 128/74; PULSE 80; RESP 18; TEMP 36.6; O2SAT 99
== END 2022-09-05 20:52 | disposition home or self-care (01) ==
PROVIDERS: Emergency Provider Emergency Medicine; PCP Physician Assistant
DX: N39.0 Urinary tract infection, site not specified (principal); R11.0 Nausea; E87.6 Hypokalemia; E83.42 Hypomagnesemia
CPT/HCPCS: 36415; 80053; 81001; 81025; 82150; 83690; 83735; 85025; 99283; A9270

== ENCOUNTER 2023-09-16 10:40 | Emergency (ER) | payer SELFPAY ==
[2023-09-16 10:40] VITALS: BP 132/78; PULSE 98; RESP 18; TEMP 36.8; O2SAT 97
[2023-09-16 11:00] VITALS: O2SAT 99
[2023-09-16] MEDS: KETOROLAC (*BKC) 60 MG/2 ML VIAL IM (11:35)
[2023-09-16 12:07] LABS: Strep Group A RT-PCR DETECTED (Negative)
--- NOTE | 2023-09-16 12:12 | ED.URI ---
HPI - URI/Sore Throat General Chief Complaint: Upper Respiratory Infection Stated Complaint: headache Time Seen by Provider: 09/16/23 10:58 Source: patient Mode of arrival: ambulatory Limitations: no limitations History of Present Illness HPI Narrative: this is a 33-year-old female with a frontal sinus headache with a sore throat tender submandibular glands no fever or chills no shortness of breath no audible wheezing no nausea vomiting. MD elicited complaint: sore throat, nasal congestion and sinus pain Onset (ago): day(s) Consistency: constant Severity: moderate Related Data Allergies Allergy/AdvReac Type Severity Reaction Status Date / Time No Known Allergies Allergy Verified 09/16/23 11:00 Review of Systems Review of Systems: All systems reviewed & are unremarkable except as noted in HPI and below PMFSH Past Medical History Medical History Anxiety Cholecystectomy planned Depression Gestational diabetes Obesity care Surgical History Surgical History Delivery by section (10/18/21) rpt c/ s Delivery by section (05/06/12) primary c/ s Social History Social History Smoking status: Never smoker Second hand tobacco smoke exposure: No Alcohol intake: never Substance use: never Gender identity (if verbalized by the patient): Female Sexual Orientation (if Verbalized by the Patient): Straight or Heterosexual Spiritual care concerns: No Agree to blood products: No Exam Const: General: healthy appearing Orientation/consciousness: patient oriented x3 Limitations: no limitations HENMT: Other: Bilateral submandibular tenderness and inflammation with palpation with tonsillarerythema in the throat Eyes: Conjunctivae: conjunctivae normal Chest: Chest palpation & inspection: normal inspection of the chest Resp: Effort & Inspection: normal respiratory effort Auscultation: clear to auscultation bilaterally Cardio: Rate: regular rate Rhythm: regular rhythm GI: GI Palp: Yes Soft to palpation Course Course Emergency Course: rapid strep positive, and I will prescribe antibiotics and will be sent to patient's pharmacy. Patient did receive Toradol for frontal sinus headache. Vital Signs Vital signs: Vital Signs Temperature 36.8 C 09/16/23 10:40 Pulse Rate 98 09/16/23 10:40 Respiratory Rate 18 09/16/23 10:40 Blood Pressure 132/78 09/16/23 10:40 Pulse Oximetry 97 09/16/23 10:40 Oxygen Delivery Room Air 09/16/23 10:40 Temperature 36.8 C 09/16/23 10:40 Pulse Rate 98 09/16/23 10:40 Respiratory Rate 18 09/16/23 10:40 Blood Pressure 132/78 09/16/23 10:40 Pulse Oximetry 99 09/16/23 11:00 Oxygen Delivery Room Air 09/16/23 11:00 MDM - URI/Sore Throat Lab Data Labs: Lab Results 09/16/23 Range/Units 11:30 Influenza A (RT-PCR) Pending Influenza B (RT-PCR) Pending RSV (RT-PCR) Pending SARS-CoV-2 RNA (RT-PCR) Pending Group A Strep (PCR) Detected A (Negative) Critical Care Time Critical Care Time Critical Care Time: No Discharge Plan Discharge Clinical Impression: Strep throat Patient Disposition: Home, Self-Care Condition: Stable Instructions: Antibiotic Form, Strep Throat (ED) Additional Instructions: take medicine as prescribed and follow with primary if symptoms persist or worsen. Prescriptions: New amoxicillin-pot clavulanate [Augmentin] 500-125 mg tablet 1 tablet PO TID 10 Days Qty: 30 0RF naproxen 500 mg tablet 500 mg PO BID PRN (Reason: pain) Qty: 14 0RF Follow-up/Referrals: Bennett,PATRICIA Lawton [Primary Care Provider] - Time of Disposition: 12:21
[2023-09-16 12:13] LABS: SARS-CoV-2 RNA PCR Negative (Negative)
[2023-09-16 12:14] LABS: Influenza A QL RT-PCR Negative (Negative); Influenza B QL RT-PCR Negative (Negative); RSV RNA, RT-PCR Negative (Negative)
[2023-09-16 12:30] VITALS: BP 118/73; PULSE 88; RESP 14; TEMP 37.7; O2SAT 100
== END 2023-09-16 12:30 | disposition home or self-care (01) ==
PROVIDERS: Emergency Provider Emergency Medicine; PCP Physician Assistant
DX: J02.0 Streptococcal pharyngitis (principal); Z20.822 Contact with and (suspected) exposure to COVID-19
CPT/HCPCS: 87637; 87651; 96372; 99283; J1885